=== PATIENT | male | born 1965 | race African-American/Black ===

== ENCOUNTER 2017-08-04 14:15 | Emergency (ER) | payer OTHER, SELFPAY ==
[2017-08-04] MEDS ORDERED: Adacel (T-DAP) 0.5 ML VIAL ONE (14:35)
[2017-08-04] MEDS ORDERED: Triple Antibiotic Oint 1 GM Packet ONE (14:35)
== END 2017-08-04 14:55 | disposition home or self-care (01) ==
LOC: MADERS 14:15
DX: S01.03XA Puncture wound without foreign body of scalp, initial encounter (principal); E11.9 Type 2 diabetes mellitus without complications; I10 Essential (primary) hypertension; W22.8XXA Striking against or struck by other objects, initial encounter
CPT/HCPCS: 90471; 90715